=== PATIENT | female | born 1930 | race Caucasian/White ===

== ENCOUNTER 2017-03-18 07:38 | Day surgery (SDC) | payer MEDICARE, BC ==
--- NOTE | 2017-03-18 05:27 | PCM.HP ---
H&P History of Present Illness - General Date of Service: 03/18/17 Admit Problem/Dx: history of rectal cancer, tubular adenoma, need for surveillance colonoscopy Source of Information: Patient History Limitations: Reports: No Limitations - History of Present Illness Initial Comments - Free Text/Narative: The patient is a 86-year-old female~referred by Dr. Carolyn Albrecht for " three year follow up~colonoscopy." ~Patient is known to the clinic. Dr. Ramsey completed EGD on 03/18/15 with findings of duodenal ulcers, duodenitis and gastritis. ~She underwent a surveillance EGD on 05/01/15, the duodenal ulcer was healed. The patient presents today for surveillance colonoscopy. The patient denies any changes to her medical history since her last visit in the clinic on 02/09/17. She did not complete the entire prep. She estimates approximately three inches remained "in the jug." She reports she did not have nausea or vomiting, she just couldn't finish the prep solution. Stools were not clear, they were loose. Stools did have color. The patient denies any constipation/ diarrhea/ hematochezia/ melena/blood on tissue paper/hemorrhoids. Has 1-2~soft, brown, formed, BMs daily. ~Bowel movements are described as regular and easy to pass. No unintentional weight loss. No change in stool caliber. No abdominal pain. ~Denies history of ulcerative colitis or Crohn's disease. Denies any family history of inflammatory bowel disease. ~Mother may have had stomach cancer. Last colonoscopy was 07/[address] Lewis, ~finding of tubular adenoma and hyperplastic polyp. ~Five year follow up recommended by Dr. Lewis in a letter sent to patient , however, three year follow up in operative report as well as per PCP. ~Patient was diagnosed~with rectal cancer in 2009, had a colonoscopy in 2010 that was normal, then 2013 as above. ~~Patient did have iron deficiency anemia and duodenal ulcers in 2014. ~Denies reflux, heartburn, nausea, vomiting, or dysphagia. ~Does take Carafate BID, she also continues on PPI therapy. She is no longer anemic. ~ - Related Data Allergies/Adverse Reactions: Allergies Allergy/AdvReac Type Severity Reaction Status Date / Time nitrofurantoin Allergy Does Not Verified 03/17/17 15:20 [From Macrobid] Remember nitrofurantoin Allergy Does Not Verified 03/17/17 15:20 macrocrystalline Remember [From Macrobid] Home Medications: Home Meds Metoprolol Succinate [Toprol XL] 25 mg PO DAILY 03/16/15 [History] Potassium Chloride [Klor-Con M20] 20 meq PO DAILY 03/16/15 [History] Alendronate Sodium [Fosamax] 70 mg PO WEEKLY 03/17/17 [History] Calcium Carb & Citrate/Vit D3 [Calcium + D3 ER Tablet] 1 tab PO DAILY 03/17/17 [ History] Furosemide [Lasix] 20 mg PO DAILY 03/17/17 [History] Lisinopril 10 mg PO DAILY 03/17/17 [History] Nitroglycerin [Nitrostat] 0.4 mg SL ASDIRECTED PRN 03/17/17 [History] Sucralfate [Sucralfate] 1 gm PO BID 03/17/17 [History] predniSONE [Prednisone] 10 mg PO DAILY 03/17/17 [History] Past Medical History Other Gastrointestinal History: hernia. bleeding ulcer Other OB/BYN History: bladder sling - Past Surgical History Other HEENT Surgeries/Procedures: bi-lat Social & Family History - Tobacco Use Smoking Status *Q: Never Smoker Second Hand Smoke Exposure: No - Recreational Drug Use Recreational Drug Use: No Drug Use in Last 12 Months: No H&P Review of Systems - Review of Systems: Review Of Systems: See Below Free Text/Narrative: Denies any exertional chest pain or shortness of breath. No history of any easy bleeding or bruising. No personal or familial history of clotting or bleeding disorders. No history of anesthetic complications. No history of familial anesthetic complications. Denies presence of chest pain. ~Distant history of chest pain. ~NO: palpitations , perceived, previously reported feels an abnormal pulse when she takes her pulse. ~NO: lower extremity edema, dyspnea, orthopnea, claudication, wheezing, obstructive sleep apnea, chronic cough, upper respiratory symptoms in the last two weeks. History of blood thinner use. Did use Coumadin at one point for atrial fibrillation. NO longer uses this, due to GI bleeding. ~History of anemia in 2015. She reports at one point discussed starting aspirin with her PCP in 2014, but did not restart this. ~NO seizure or stroke hx. ~ Has never used Nitro. ~ EKG 2013: borderline left axis deviation with atrial fibrillation. ~ Prior cardiology evaluation. ~ NO pulmonology evaluation. Echo 2015: Conclusion: 1. Normal LV size and systolic function without hypertrophy. Left ventricular ejection fraction is 55%. 2. Moderately enlarged right ventricle with normal systolic motion. 3. Severe biatrial dilatation. 4. Mild aortic valve sclerosis with mild regurgitation. 5. Mildly elevated pulmonary artery systolic pressure, estimated at 45.5 mmHg. All other systems reviewed and were negative except as per history of present illness. General: Reports: No Symptoms. Denies: Fever, Chills, Night Sweats HEENT: Reports: No Symptoms Pulmonary: Reports: No Symptoms. Denies: Shortness of Breath Cardiovascular: Reports: No Symptoms. Denies: Chest Pain, Palpitations Gastrointestinal: Reports: No Symptoms. Denies: Abdominal Pain Genitourinary: Reports: No Symptoms Musculoskeletal: Reports: No Symptoms Skin: Reports: No Symptoms Psychiatric: Reports: No Symptoms Neurological: Reports: No Symptoms Hematologic/Lymphatic: Reports: No Symptoms Immunologic: Reports: No Symptoms Exam - Exam Exam: See Below - Vital Signs Weight: 97.069 kg - Exam General: Alert, Oriented HEENT: Conjunctiva Clear, Pupils Reactive. No: Scleral Icterus Lungs: Clear to Auscultation, Normal Respiratory Effort Cardiovascular: Regular Rate, Irregular Rhythm (irregularly irregular ). No: Systolic Murmur, Diastolic Murmur Abdomen: Soft. No: Distention, Tenderness Back Exam: Normal Inspection (seborrheic keratosis multiple ) Extremities: Normal Inspection. No: Clubbing, Cyanosis, Calf Tenderness, Edema , Increased Warmth Skin: Warm, Dry, Intact Neuro Extensive - Mental Status: Alert, Oriented x3, Normal Mood/Affect, Normal Cognition, Memory Intact Psychiatric: Alert, Normal Affect, Normal Mood *Q Meaningful Use (ADM) - VTE *Q VTE Criteria *Q: - Stroke *Q Stroke Criteria *Q: - AMI *Q AMI Criteria *Q: - Problem List (1) History of rectal or anal cancer SNOMED Code(s): 096088122, 325902974 ICD Code: Z85.048 - PRSNL HX OF MALIG NEOPLM OF RECTUM, RECTOSIG JUNCT, AND ANUS Status: Acute Current Visit: Yes (2) History of adenomatous polyp of colon SNOMED Code(s): 705607520 ICD Code: Z86.010 - PERSONAL HISTORY OF COLONIC POLYPS Status: Acute Current Visit: Yes Problem List Initiated/Reviewed/Updated: Yes Orders Last 24hrs: Active Orders 24 hr Category Date Time Status Peripheral IV Care [RC] . DIRECTED Care 03/18/17 00:01 Active Verify Patient Consent Obtain [RC] ASDIRECTED Care 03/18/17 00:01 Active Lactated Ringers [Ringers, Lactated] 1,000 ml Med 03/18/17 00:01 Active IV ASDIRECTED Lidocaine 1%/Sod Bicarbonate [Buffered Lidocaine 1% in Med 03/18/17 00:01 Active NS 8.4%] 0.25 ml .XX ONETIME PRN Sodium Chloride 0.9% [Saline Flush] Med 03/18/17 00:01 Active 10 ml FLUSH ASDIRECTED PRN Medication Administration Instruction [OM.PC] Routine Oth 03/18/17 00:01 Ordered Peripheral IV Insertion Adult [OM.PC] Routine Oth 03/18/17 00:01 Ordered Medication Orders Lactated Ringer's (Ringers, Lactated) 1,000 mls @ 125 mls/hr IV ASDIRECTED MIGUEL Stop: 03/18/17 23:00 Lidocaine/Sodium Bicarbonate (Buffered Lidocaine 1% In Ns 8.4%) 0.25 ml .XX ONETIME PRN PRN Reason: Prior to IV Start Stop: 03/18/17 18:00 Sodium Chloride (Saline Flush) 10 ml FLUSH ASDIRECTED PRN PRN Reason: Keep Vein Open Stop: 03/18/17 18:00 Assessment/Plan Comment:: 86yr female with history of rectal cancer, tubular adenoma, need for surveillance colonoscopy Patient can perform 4 METS of physical activity without chest pain or shortness of breath. PLAN: Patient was not able to complete the entire prep and does not have clear stools. We discussed we could cancel today and she could try a clear liquid prep, with Dulcolax, Amitiza and Mg Citrate or we could proceed with procedure and if view is poor will plan to repeat colonoscopy in one year. The patient did want to proceed with colonoscopy today as planned. We discussed performing a surveillance~colonoscopy. We discussed the risks and benefits of the procedure, including, pain, bleeding, infection, damage to surrounding structures, need for additional procedures, and bowel perforation. This procedure will be done at [facility] due to atrial fibrillation (currently not on anticoagulation therapy), cardiac history. I personally reviewed the patient's previous medical records and laboratory studies. Patient verbalized understanding and agreed with care plan. Patient was evaluated with Dr. Bonny Ramsey, plan formulated above by Dr. Bonny Carballo, [employer]-C scribing for Dr. Bonny Ramsey General Surgery Department [facility]
[~2017-03-18 07:38] MED LIST: Lactated Ringers 1,000 ML IV SCH; Lidocaine 1%/Sod Bicarbonate in NS 8.4% 1 ML Syringe PRN; Propofol 200 MG/20 ML SDV ONE; Sodium Chloride 0.9% 10 ML Syringe FLUSH PRN
--- NOTE | 2017-03-18 07:47 | PCM.PREANE ---
Preanesthetic Assessment - Anesthesia/Transfusion/Family Hx Anesthesia History: Prior Anesthesia Without Reaction Family History of Anesthesia Reaction: No - Physical Assessment Height: 1.65 m Weight: 97.069 kg - Allergies Allergies/Adverse Reactions: Allergies Allergy/AdvReac Type Severity Reaction Status Date / Time nitrofurantoin Allergy Does Not Verified 03/17/17 15:20 [From Macrobid] Remember nitrofurantoin Allergy Does Not Verified 03/17/17 15:20 macrocrystalline Remember [From Macrobid] PreAnesthesia Questionnaire Other Gastrointestinal History: hernia. bleeding ulcer Other OB/BYN History: bladder sling - Past Surgical History Head Surgeries/Procedures: Reports: None HEENT Surgical History: Reports: None, Cataract Surgery, Other (See Below) ( septoplasty, TMJ surgery with FROM noted) Other HEENT Surgeries/Procedures: bi-lat Cardiovascular Surgical History: Reports: None Respiratory Surgical History: Reports: None GI Surgical History: Reports: Appendectomy, Colon, Colonoscopy, EGD, Hernia Repair/Other Female Surgical History: Reports: Hysterectomy, Salpingo-Oophorectomy Male Surgical History: Reports: None Endocrine Surgical History: Reports: None Neurological Surgical History: Reports: Discectomy Musculoskeletal Surgical History: Reports: None Oncologic Surgical History: Reports: None Dermatological Surgical History: Reports: None - SUBSTANCE USE Smoking Status *Q: Never Smoker Tobacco Use Within Last Twelve Months: No Second Hand Smoke Exposure: No Recreational Drug Use History: No - HOME MEDS Home Medications: Home Meds Metoprolol Succinate [Toprol XL] 25 mg PO DAILY 03/16/15 [History] Potassium Chloride [Klor-Con M20] 20 meq PO DAILY 03/16/15 [History] Alendronate Sodium [Fosamax] 70 mg PO WEEKLY 03/17/17 [History] Calcium Carb & Citrate/Vit D3 [Calcium + D3 ER Tablet] 1 tab PO DAILY 03/17/17 [ History] Furosemide [Lasix] 20 mg PO DAILY 03/17/17 [History] Lisinopril 10 mg PO DAILY 03/17/17 [History] Nitroglycerin [Nitrostat] 0.4 mg SL ASDIRECTED PRN 03/17/17 [History] Sucralfate [Sucralfate] 1 gm PO BID 03/17/17 [History] predniSONE [Prednisone] 10 mg PO DAILY 03/17/17 [History] - CURRENT (IN HOUSE) MEDS Current Meds: Current Medications Lactated Ringer's (Ringers, Lactated) 1,000 mls @ 125 mls/hr IV ASDIRECTED MIGUEL Stop: 03/18/17 23:00 Lidocaine/Sodium Bicarbonate (Buffered Lidocaine 1% In Ns 8.4%) 0.25 ml .XX ONETIME PRN PRN Reason: Prior to IV Start Stop: 03/18/17 18:00 Sodium Chloride (Saline Flush) 10 ml FLUSH ASDIRECTED PRN PRN Reason: Keep Vein Open Stop: 03/18/17 18:00 Discontinued Medications Propofol (Diprivan 20 Ml) Confirm Administered Dose 200 mg .ROUTE .STK-MED ONE Stop: 03/18/17 07:08
--- NOTE | 2017-03-18 08:08 | PCM.PREANE ---
Preanesthetic Assessment - Anesthesia/Transfusion/Family Hx Anesthesia History: Prior Anesthesia Without Reaction Family History of Anesthesia Reaction: No Transfusion History: Prior Transfusion Without Reaction - Review of Systems General: No Symptoms Pulmonary: No Symptoms Cardiovascular: No Symptoms Gastrointestinal: No symptoms Neurological: No Symptoms Other: Reports: None - Physical Assessment Pulse: 79 O2 Sat by Pulse Oximetry: 96 Respiratory Rate: 16 Blood Pressure: 152/84 Temperature: 98.4 C Height: 1.65 m Weight: 97.069 kg ASA Class: 3 Mental Status: Alert & Oriented x3 Airway Class: Mallampati = 2 Dentition: Reports: Normal Dentition Thyro-Mental Finger Breadths: 3 Mouth Opening Finger Breadths: 3 ROM/Head Extension: Full Lungs: Clear to auscultation, Normal respiratory effort Cardiovascular: Irregular Rhythm (hx a-fib) - Allergies Allergies/Adverse Reactions: Allergies Allergy/AdvReac Type Severity Reaction Status Date / Time nitrofurantoin Allergy Does Not Verified 03/17/17 15:20 [From Macrobid] Remember nitrofurantoin Allergy Does Not Verified 03/17/17 15:20 macrocrystalline Remember [From Macrobid] - Anesthesia Plan Beta Sundeep: Metoprolol (0630) - Acknowledgements Anesthesia Type Planned: MAC Pt an Appropriate Candidate for the Planned Anesthesia: Yes Alternatives and Risks of Anesthesia Discussed w Pt/Guardian: Yes Pt/Guardian Understands and Agrees with Anesthesia Plan: Yes PreAnesthesia Questionnaire Cardiovascular History: Reports: Afib, Heart Failure, Hypertension, SOB on Exertion, Other (See Below) (EF 55%, increased lipids, angiogram 13) Respiratory History: Reports: SOB (pt states only with exertion) Gastrointestinal History: Reports: Colon Polyp, GERD, Other (See Below) (hx rectal CA) Other Gastrointestinal History: hernia. bleeding ulcer Genitourinary History: Reports: None Other OB/BYN History: bladder sling Musculoskeletal History: Reports: Other (See Below) (polymyalgia rheumatica) Neurological History: Reports: Other (See Below) (some memory issues) Psychiatric History: Reports: None Endocrine/Metabolic History: Reports: Other (See Below) (hyperglycemia) Hematologic History: Reports: None Immunologic History: Reports: None Oncologic (Cancer) History: Reports: Other (See Below) (hx rectal CA) - Past Surgical History Head Surgeries/Procedures: Reports: None (no anesthetic somp with any surgeries) HEENT Surgical History: Reports: None, Cataract Surgery, Other (See Below) ( septoplasty, TMJ surgery with FROM noted) Other HEENT Surgeries/Procedures: bi-lat Cardiovascular Surgical History: Reports: None Respiratory Surgical History: Reports: None GI Surgical History: Reports: Appendectomy, Colon, Colonoscopy, EGD, Hernia Repair/Other Female Surgical History: Reports: Hysterectomy, Salpingo-Oophorectomy Male Surgical History: Reports: None Endocrine Surgical History: Reports: None Neurological Surgical History: Reports: Discectomy Musculoskeletal Surgical History: Reports: None Oncologic Surgical History: Reports: None Dermatological Surgical History: Reports: None - SUBSTANCE USE Smoking Status *Q: Never Smoker Tobacco Use Within Last Twelve Months: No Second Hand Smoke Exposure: No Recreational Drug Use History: No - HOME MEDS Home Medications: Home Meds Metoprolol Succinate [Toprol XL] 25 mg PO DAILY 03/16/15 [History] Potassium Chloride [Klor-Con M20] 20 meq PO DAILY 03/16/15 [History] Alendronate Sodium [Fosamax] 70 mg PO WEEKLY 03/17/17 [History] Calcium Carb & Citrate/Vit D3 [Calcium + D3 ER Tablet] 1 tab PO DAILY 03/17/17 [ History] Furosemide [Lasix] 20 mg PO DAILY 03/17/17 [History] Lisinopril 10 mg PO DAILY 03/17/17 [History] Nitroglycerin [Nitrostat] 0.4 mg SL ASDIRECTED PRN 03/17/17 [History] Sucralfate [Sucralfate] 1 gm PO BID 03/17/17 [History] predniSONE [Prednisone] 10 mg PO DAILY 03/17/17 [History] - CURRENT (IN HOUSE) MEDS Current Meds: Current Medications Lactated Ringer's (Ringers, Lactated) 1,000 mls @ 125 mls/hr IV ASDIRECTED MIGUEL Stop: 03/18/17 23:00 Lidocaine/Sodium Bicarbonate (Buffered Lidocaine 1% In Ns 8.4%) 0.25 ml .XX ONETIME PRN PRN Reason: Prior to IV Start Stop: 03/18/17 18:00 Sodium Chloride (Saline Flush) 10 ml FLUSH ASDIRECTED PRN PRN Reason: Keep Vein Open Stop: 03/18/17 18:00 Discontinued Medications Propofol (Diprivan 20 Ml) Confirm Administered Dose 200 mg .ROUTE .STK-MED ONE Stop: 03/18/17 07:08
--- NOTE | 2017-03-18 09:15 | PCM.OPNOTE ---
- General Post-Op/Procedure Note Date of Surgery/Procedure: 03/18/17 Operative Procedure(s): Surveillance colonoscopy Pre Op Diagnosis: Personal history of rectal cancer Post-Op Diagnosis: Normal-appearing colon Anesthesia Technique: MAC Primary Surgeon: Bonny Ramsey Anesthesia Provider: Ijeoma Chavez EBL in mLs: 0 Complications: None Condition: Good Free Text/Narrative:: FLUIDS: 600 mL crystalloid INDICATION FOR PROCEDURE: The patient is an 87-year-old woman who was referred to me by Dr. Carolyn Albrecht for evaluation for surveillance colonoscopy due to a personal history of rectal cancer. Performing a surveillance colonoscopy and the associated risks of the procedure had been discussed with the patient. The patient found these risks acceptable and agreed to proceed. The patient's last colonoscopy was performed in [address] Lewis and the patient was found to have one tubular adenoma and hyperplastic polyp. DESCRIPTION OF PROCEDURE: The patient was taken to the operating room and placed in left lateral decubitus position. After induction of adequate sedation , a digital rectal exam was performed which was unremarkable. A pediatric Olympus colonoscope was inserted into the rectum and guided under direct visualization to the appendiceal orifice and ileocecal valve. The scope was then slowly withdrawn through the colon. The quality of the prep was good. There was no evidence of angiodysplasias, diverticulum or mass lesions. The patient's rectal anastomoses, there were 2, were noted. They were widely patent with no evidence of recurrence. The scope was withdrawn into the rectum and retroflexed. There were grade 1 internal hemorrhoids. The scope was straightened, the colon was desufflated, and the scope was withdrawn. The patient was awakened from sedation and transferred to the recovery room in stable condition having tolerated the procedure well. POSTOPERATIVE PLAN: I discussed with the patient's my intraoperative findings and recommendations. I would recommend a repeat colonoscopy in 5 years depending on the patient's health at that time she will be 89.
--- NOTE | 2017-03-18 09:15 | PCM48HPAN ---
Post Anesthesia Note - EVALUATION WITHIN 48HRS OF ANESTHETIC Vital Signs in Normal Range: Yes Patient Participated in Evaluation: Yes Respiratory Function Stable: Yes Airway Patent: Yes Cardiovascular Function Stable: Yes Hydration Status Stable: Yes Pain Control Satisfactory: Yes Nausea and Vomiting Control Satisfactory: Yes Mental Status Recovered: Yes
[2017-03-18] MEDS ORDERED: Propofol 200 MG/20 ML SDV ONE (09:17)
[2017-03-18 10:12] VITALS: BP 132/74
== END 2017-03-18 09:40 | disposition home or self-care (01) ==
LOC: JD.SDS 07:38
PROVIDERS: ATTEND Surgery
DX: Z12.11 Encounter for screening for malignant neoplasm of colon (principal); Z85.048 Personal history of other malignant neoplasm of rectum, rectosigmoid junction, and anus; K64.8 Other hemorrhoids; Z88.8 Allergy status to other drugs, medicaments and biological substances; Z79.899 Other long term (current) drug therapy; Z98.890 Other specified postprocedural states
CPT/HCPCS: G0105; J7120; J2704

== ENCOUNTER 2020-01-16 16:05 | Emergency (ER) | payer MEDICARE, BC ==
[2020-01-16] MEDS ORDERED: Sodium Chloride 0.9% 10 ML Syringe FLUSH PRN (16:24)
[2020-01-16] MEDS ORDERED: Ondansetron 4 MG/2 ML SDV IVPUSH ONE (16:24)
[2020-01-16] MEDS ORDERED: Sodium Chloride 0.9% 1,000 ML IV SCH (16:30)
--- NOTE | 2020-01-16 16:52 | CT ---
Head CT Technique: Multiple axial sections through the brain were obtained. Intravenous contrast was not utilized. Comparison: No prior intracranial imaging is available. Findings: Ventricles along with basal cisterns and sulci over the convexities are mildly prominent. Diminished density is noted within the periventricular and subcortical white matter. This is most likely due to small vessel ischemic demyelination change. 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 No other abnormal parenchymal densities are seen. No evidence of intracranial hemorrhage. No midline shift or mass-effect is seen. Bone window settings were reviewed. Visualized paranasal sinuses show nothing acute. No acute calvarial abnormality is seen. Visualized mastoid sinuses also show nothing acute. Impression: 1. Senescent change as noted above. 2. Nothing acute is appreciated on noncontrast head CT study. Diagnostic code #2 This report was dictated in MDT
--- NOTE | 2020-01-16 16:57 | EDM.PDOC ---
ED HPI GENERAL MEDICAL PROBLEM - General Chief Complaint: Neurological Problem Stated Complaint: [facility] Time Seen by Provider: 01/16/20 16:13 Source of Information: Reports: Patient, EMS History Limitations: Reports: No Limitations - History of Present Illness INITIAL COMMENTS - FREE TEXT/NARRATIVE: The patient presents by [facility] for feeling "woozy." She said she felt fine this morning and at lunch. After lunch she put a load of laundry in the washer and was walking down the hallway and felt "woozy." She had to sit down. She cannot elaborate on this feeling. She says she is not nauseated and was not dizzy. She also did not feel lightheaded. She has no fever, chills, cough, congestion, runny nose, ear pain, sore throat, chest pain, shortness of breath, abdominal pain, nausea or vomiting. She has no numbness or weakness. She has never had anything like this happen before. She has a history of A-fib. Onset: Sudden Duration: Hour(s): Quality: Reports: Other ("woozy") Improves with: Reports: None Worsens with: Reports: None Associated Symptoms: Reports: No Other Symptoms - Related Data Allergies Allergy/AdvReac Type Severity Reaction Status Date / Time nitrofurantoin Allergy Does Not Verified 03/17/17 15:20 [From Macrobid] Remember nitrofurantoin Allergy Does Not Verified 03/17/17 15:20 macrocrystalline Remember [From Macrobid] Home Meds: Home Meds Metoprolol Succinate [Toprol XL] 25 mg PO DAILY 03/16/15 [History] Potassium Chloride [Klor-Con M20] 20 meq PO DAILY 03/16/15 [History] Alendronate Sodium [Fosamax] 70 mg PO WEEKLY 03/17/17 [History] Calcium Carb, Citrate/Vit D3 [Calcium + D3 ER Tablet] 1 tab PO DAILY 03/17/17 [ History] Furosemide [Lasix] 20 mg PO DAILY 03/17/17 [History] Lisinopril 10 mg PO DAILY 03/17/17 [History] Nitroglycerin [Nitrostat] 0.4 mg SL ASDIRECTED PRN 03/17/17 [History] Sucralfate 1 gm PO BID 03/17/17 [History] predniSONE [Prednisone] 10 mg PO DAILY 03/17/17 [History] Meclizine [Antivert] 25 mg PO Q6H PRN #20 tab 01/16/20 [Rx] Past Medical History Cardiovascular History: Reports: Afib, Heart Failure, Hypertension, SOB on Exertion, Other (See Below) (EF 55%, increased lipids, angiogram 13) Respiratory History: Reports: SOB (pt states only with exertion) Gastrointestinal History: Reports: Colon Polyp, GERD, Other (See Below) (hx rectal CA) Other Gastrointestinal History: hernia. 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 Musculoskeletal History: Reports: Other (See Below) (polymyalgia rheumatica) Neurological History: Reports: Other (See Below) (some memory issues) Psychiatric History: Reports: None Endocrine/Metabolic History: Reports: Other (See Below) (hyperglycemia) Hematologic History: Reports: None Immunologic History: Reports: None Oncologic (Cancer) History: Reports: Other (See Below) (hx rectal CA) - Past Surgical History Other HEENT Surgeries/Procedures: bi-lat ED ROS GENERAL - Review of Systems Review Of Systems: See Below Constitutional: Reports: No Symptoms HEENT: Reports: No Symptoms Respiratory: Reports: No Symptoms Cardiovascular: Reports: No Symptoms Endocrine: Reports: No Symptoms GI/Abdominal: Reports: No Symptoms : Reports: No Symptoms Musculoskeletal: Reports: No Symptoms Skin: Reports: No Symptoms Neurological: Reports: Other ("woozy" feeling). Denies: Dizziness, Headache, Numbness ED EXAM, NEURO - Physical Exam Exam: See Below Exam Limited By: No Limitations General Appearance: Alert, No Apparent Distress Eye Exam: Bilateral Eye: EOMI, PERRL Ears: Normal External Exam Nose: Normal Inspection Head Exam: Atraumatic, Normocephalic Neck: Normal Inspection Respiratory/Chest: No Respiratory Distress, Lungs Clear, Normal Breath Sounds Cardiovascular: Regular Rate, Rhythm, No Edema, No Murmur GI/Abdominal: Soft, Non-Tender, No Organomegaly, No Mass Neurological: Alert, No Motor/Sensory Deficits, Oriented x 3 Course - Vital Signs Last Recorded V/S: Last Vital Signs Temp 97.2 F 01/16/20 16:17 Pulse 81 01/16/20 16:17 Resp 16 01/16/20 16:17 BP 122/79 01/16/20 16:17 Pulse Ox 99 04/20/20 16:17 - Orders/Labs/Meds Orders: Active Orders 24 hr Category Date Time Status Cardiac Monitoring [RC] . DIRECTED Care 01/16/20 16:24 Active EKG Documentation Completion [RC] STAT Care 01/16/20 16:25 Active Peripheral IV Care [RC] . DIRECTED Care 01/16/20 16:25 Active Sodium Chloride 0.9% [Normal Saline] 1,000 ml Med 01/16/20 16:30 Active IV ASDIRECTED Sodium Chloride 0.9% [Saline Flush] Med 01/16/20 16:24 Active 10 ml FLUSH ASDIRECTED PRN ED Antiemetic Medication Reflex [OM.PC] Stat Oth 01/16/20 16:24 Ordered Peripheral IV Insertion Adult [OM.PC] Stat Oth 01/16/20 16:24 Ordered Medication Orders Sodium Chloride (Normal Saline) 1,000 mls @ 125 mls/hr IV ASDIRECTED MIGUEL Last Admin: 01/16/20 17:19 Dose: 125 mls/hr Sodium Chloride (Saline Flush) 10 ml FLUSH ASDIRECTED PRN PRN Reason: Keep Vein Open Last Admin: 01/16/20 17:19 Dose: 10 ml Labs: Laboratory Tests 01/16/20 01/16/20 Range/Units 17:02 17:02 WBC 6.43 (3.98-10.04) K/mm3 RBC 4.50 (3.98-5.22) M/mm3 Hgb 13.7 D (11.2-15.7) gm/dl Hct 43.3 (34.1-44.9) % MCV 96.2 H (79.4-94.8) fl MCH 30.4 (25.6-32.2) pg MCHC 31.6 L (32.2-35.5) g/dl RDW Std Deviation 46.2 (36.4-46.3) fL Plt Count 217 (182-369) K/mm3 MPV 11.9 (9.4-12.3) fl Neut % (Auto) 67.8 (34.0-71.1) % Lymph % (Auto) 22.6 (19.3-51.7) % [place] % (Auto) 7.9 (4.7-12.5) % Eos % (Auto) 0.9 (0.7-5.8) Baso % (Auto) 0.6 (0.1-1.2) % Neut # (Auto) 4.36 (1.56-6.13) K/mm3 Lymph # (Auto) 1.45 (1.18-3.74) K/mm3 [place] # (Auto) 0.51 H (0.24-0.36) K/mm3 Eos # (Auto) 0.06 (0.04-0.36) K/mm3 Baso # (Auto) 0.04 (0.01-0.08) K/mm3 Sodium 143 (136-145) mEq/L Potassium 4.2 (3.5-5.1) mEq/L Chloride 106 (98-107) mEq/L Carbon Dioxide 29 (21-32) mEq/L Anion Gap 12.2 (5-15) BUN 17 (7-18) mg/dL Creatinine 1.1 H (0.55-1.02) mg/dL Est Cr Clr Drug Dosing TNP Estimated GFR (MDRD) 47 (>60) mL/min BUN/Creatinine Ratio 15.5 (14-18) Glucose 102 (83-115) mg/dL Calcium 10.2 H D (8.5-10.1) mg/dL Total Bilirubin 0.4 (0.2-1.0) mg/dL AST 16 (15-37) U/L ALT 21 (14-59) U/L Alkaline Phosphatase 97 (46-116) U/L Troponin I < 0.017 (0.00-0.056) ng/mL Total Protein 7.7 (6.4-8.2) g/dl Albumin 3.9 (3.4-5.0) g/dl Globulin 3.8 gm/dL Albumin/Globulin Ratio 1.0 (1-2) Meds: Medications Generic Name Dose Route Start Last Admin Trade Name Freq PRN Reason Stop Dose Admin Sodium Chloride 1,000 mls @ 125 mls/hr 01/16/20 16:30 01/16/20 17:19 Normal Saline IV 125 mls/hr ASDIRECTED MIGUEL Administration Sodium Chloride 10 ml 01/16/20 16:24 01/16/20 17:19 Saline Flush FLUSH 10 ml ASDIRECTED PRN Administration Keep Vein Open Discontinued Medications Generic Name Dose Route Start Last Admin Trade Name Freq PRN Reason Stop Dose Admin Ondansetron HCl 4 mg 01/16/20 16:24 01/16/20 17:19 Zofran IVPUSH 01/16/20 16:25 4 mg ONETIME ONE Administration - Re-Assessments/Exams Free Text/Narrative Re-Assessment/Exam: 01/16/20 16:57 I ordered an IV NS at 125ml/hr, zofran 4mg IV, EKG, CT of her head, labs and UA. 01/16/20 17:[address] of her head shows senescent change. Nothing acute is appreciated on noncontrast head CT study. Her CBC and CMP look good. Her troponin is negative. She feels a little better. It almost sounds like she had some vertigo. I will get her some antivert as needed and have her follow up with Dr Albrecht. Departure - Departure Time of Disposition: 18:00 Disposition: Home, Self-Care 01 Condition: Good Clinical Impression: Dizziness of unknown cause - Discharge Information *PRESCRIPTION DRUG MONITORING PROGRAM REVIEWED*: Not Applicable *COPY OF PRESCRIPTION DRUG MONITORING REPORT IN PATIENT BLAZE: Not Applicable Prescriptions: Meclizine [Antivert] 25 mg PO Q6H PRN #20 tab PRN Reason: Dizziness Referrals: PCP,None [Primary Care Provider] - Carolyn Albrecht MD [Physician] - Forms: ED Department Discharge Additional Instructions: Take your medication as prescribed. Take the antivert every 6 hours as needed for any dizziness. Please return if you are worse. Sepsis Event Note - Evaluation Sepsis Screening Result: No Definite Risk - Focused Exam Vital Signs: Vital Signs Temp Pulse Resp BP Pulse Ox 01/16/20 16:17 97.2 F 81 16 122/79 99 Date Exam was Performed: 01/16/20 Time Exam was Performed: 17:58 - My Orders Last 24 Hours: My Active Orders 01/16/20 16:24 Cardiac Monitoring [RC] . DIRECTED Sodium Chloride 0.9% [Saline Flush] 10 ml FLUSH ASDIRECTED PRN ED Antiemetic Medication Reflex [OM.PC] Stat Peripheral IV Insertion Adult [OM.PC] Stat 01/16/20 16:25 EKG Documentation Completion [RC] STAT Peripheral IV Care [RC] . DIRECTED 01/16/20 16:30 Sodium Chloride 0.9% [Normal Saline] 1,000 ml IV ASDIRECTED - Assessment/Plan Last 24 Hours: My Active Orders 01/16/20 16:24 Cardiac Monitoring [RC] . DIRECTED Sodium Chloride 0.9% [Saline Flush] 10 ml FLUSH ASDIRECTED PRN ED Antiemetic Medication Reflex [OM.PC] Stat Peripheral IV Insertion Adult [OM.PC] Stat 01/16/20 16:25 EKG Documentation Completion [RC] STAT Peripheral IV Care [RC] . DIRECTED 01/16/20 16:30 Sodium Chloride 0.9% [Normal Saline] 1,000 ml IV ASDIRECTED
[2020-01-16 18:15] VITALS: BP 142/71; PULSE 82
== END 2020-01-16 18:20 | disposition home or self-care (01) ==
LOC: JD.ED 16:05
DX: R42 Dizziness and giddiness (principal); I11.0 Hypertensive heart disease with heart failure; I50.9 Heart failure, unspecified; I48.91 Unspecified atrial fibrillation; Z88.8 Allergy status to other drugs, medicaments and biological substances; Z79.899 Other long term (current) drug therapy
CPT/HCPCS: 36415; 70450; 80053; 84484; 85025; 93005; 96361; 96374; 99284; J2405; J7030; 93010

== ENCOUNTER 2022-02-27 20:38 | Emergency (ER) | payer MEDICARE, BC ==
[2022-02-27] MEDS ORDERED: Sodium Chloride 0.9% 10 ML Syringe FLUSH PRN (21:17)
[2022-02-27 21:29] VITALS: BP 131/63; PULSE 85
== END 2022-02-27 23:05 | disposition home or self-care (01) ==
LOC: JD.ED 20:38
DX: R60.0 Localized edema (principal); I48.91 Unspecified atrial fibrillation; I11.0 Hypertensive heart disease with heart failure; I50.9 Heart failure, unspecified; K21.9 Gastro-esophageal reflux disease without esophagitis; Z88.1 Allergy status to other antibiotic agents; Z79.899 Other long term (current) drug therapy; Z20.822 Contact with and (suspected) exposure to COVID-19
CPT/HCPCS: 36415; 71045; 80053; 83880; 84484; 85025; 93005; 99284; J3490; U0002